=== PATIENT | female | born 1960 | race Caucasian/White ===

== ENCOUNTER → 2023-10-30 11:59 | Outpatient (REF) | payer BC, SELFPAY | LOC: WDC 11:59 | PROVIDERS: ATTENDING PHYSICIAN Family Medicine | DX: Z12.31 Encounter for screening mammogram for malignant neoplasm of breast (principal) | CPT/HCPCS: 77063; 77067 ==

== ENCOUNTER → 2024-06-15 20:32 | Outpatient (REF) | payer BC, SELFPAY | LOC: MRI 3T 20:32 | PROVIDERS: ATTENDING PHYSICIAN Family Medicine | DX: M25.561 Pain in right knee (principal) | CPT/HCPCS: 73721 ==

== ENCOUNTER → 2024-11-02 12:04 | Outpatient (REF) | payer BC, SELFPAY | LOC: WDC 12:04 | PROVIDERS: ATTENDING PHYSICIAN Family Medicine | DX: Z12.31 Encounter for screening mammogram for malignant neoplasm of breast (principal) | CPT/HCPCS: 77063; 77067 ==